=== PATIENT | female | born 1970 | race Caucasian/White ===

== ENCOUNTER 2019-03-23 13:58 | Emergency (ER) | payer BC, OTHER ==
[2019-03-23] MEDS ORDERED: Morphine 4 MG/ML VIAL (1 ml) 4 MG/ML VIAL IV ONE (15:08)
[2019-03-23] MEDS ORDERED: Ondansetron INJ* 2 MG/ML VIAL IV ONE (15:08)
[2019-03-23] MEDS ORDERED: HYDROcodone/ACETAMIN 5-325 MG* 1 TAB PO ONE (15:31)
[2019-03-23] MEDS ORDERED: Ondansetron ODT TAB* 4 MG SL ONE (15:31)
[2019-03-23] MEDS ORDERED: Ibuprofen TAB* 600 MG PO ONE (17:30)
[2019-03-23] MEDS ORDERED: Cyclobenzaprine TAB* 10 MG PO ONE (17:30)
[2019-03-23 18:37] VITALS: BP 107/68
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
== END 2019-03-23 18:36 | disposition home or self-care (01) ==
LOC: ED 13:58
DX: S40.212A Abrasion of left shoulder, initial encounter (principal); V18.4XXA Pedal cycle driver injured in noncollision transport accident in traffic accident, initial encounter; Y93.55 Activity, bike riding; M50.322 Other cervical disc degeneration at C5-C6 level
CPT/HCPCS: 70450; 72125; 72128; 72131; 96374; 96375; 99283; A9270-GY